=== PATIENT | female | born 1965 | race Caucasian/White ===

== ENCOUNTER 2021-01-05 23:10 | Emergency (ER) | payer OTHER ==
--- NOTE | 2021-01-05 23:22 | NUR ---
PATIENT REFUSES TO BE TRIAGED. REFUSING TO ALLOW STAFF TO TAKE VITAL SIGNS. PATIENT STARTED YELLING AND BEING RUDE TO STAFF. PATIENT REFUSING TREATMENT. PATIENT LEFT
== END 2021-01-05 23:41 | disposition left against medical advice (07) ==
LOC: ER 23:14
DX: Z53.21 Procedure and treatment not carried out due to patient leaving prior to being seen by health care provider (principal)